=== PATIENT | male | born 1965 | race Caucasian/White ===

== ENCOUNTER 2017-04-08 12:05 | Emergency (ER) | payer BC ==
[2017-04-08] MEDS ORDERED: IBUPROFEN 400 MG TABLET (FP) PO ONE ×2 (12:11→12:25)
--- NOTE | 2017-04-08 12:11 | PDOC ---
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 The patient states that he heard 3 pops while he was lifting the patient and subsequently has pain. The pain is described as sharp, localized and is worse with deep inspiration and movement. The patient did not take any medication for the pain. He denies shortness of breath. He denies any URI symptoms, fevers or chills. Past History - Past Medical History Allergies/Adverse Reactions: Allergies Allergy/AdvReac Type Severity Reaction Status Date / Time No Known Allergies Allergy Verified 04/08/17 12:06 Home Medications: Ambulatory Orders Clonazepam [Klonopin] 2 mg PO HS 04/08/17 - Psycho/Social/Smoking Cessation Hx Anxiety: No Suicidal Ideation: No Smoking History: Current every day smoker Number of Cigarettes Smoked Daily: 10 'Breaking Loose' booklet given: 07/08/14 Hx Alcohol Use: Yes (once weekly) Review of Systems - Review of Systems Able to Perform ROS?: Yes Is the patient limited Yi proficient: No Constitutional: No: Symptoms Reported HEENTM: No: Symptoms Reported Respiratory: Yes: See HPI Cardiac (ROS): No: Symptoms Reported ABD/GI: No: Symptoms Reported : No: Symptoms Reported Musculoskeletal: Yes: See HPI Integumentary: No: Symptoms Reported *Physical Exam - Physical Exam Comments: 04/08/17 12:13 GENERAL: Well developed, well nourished. Awake and alert. No acute distress. HEENT: Normocephalic, atraumatic. PERRLA, EOMI. No conjunctival pallor. Sclera are non- icteric. Moist mucous membranes. Oropharynx is clear. NECK: Supple. Full ROM. No JVD. No lymphadenopathy. CARDIOVASCULAR: Regular rate and rhythm. No murmurs, rubs, or gallops. Distal pulses are 2+ and symmetric. PULMONARY: No evidence of respiratory distress. Lungs clear to auscultation bilaterally. No wheezing, rales or rhonchi. There is mild tenderness to palpation of the lower anterior/lateral chest wall with no crepitus appreciated. ABDOMINAL: Soft. Non-tender. Non-distended. No rebound or guarding. No organomegaly. Normoactive bowel sounds. MUSCULOSKELETAL Normal range of motion at all joints. No bony deformities or tenderness. No CVA tenderness. EXTREMITIES: No cyanosis. No clubbing. No edema. No calf tenderness. SKIN: Warm and dry. Normal capillary refill. No rashes. No jaundice. NEUROLOGICAL: Alert, awake, appropriate. Cranial nerves 2-12 intact. Grossly non-focal exam. PSYCHIATRIC: Cooperative. Good eye contact. Appropriate mood and affect. Medical Decision Making - Medical Decision Making 04/08/17 12:14 51-year-old male with complaints of right sided lateral and anterior chest wall pain after lifting a heavy patient today. Differential diagnosis includes but is not limited to: Hip fracture, strain muscle, contusion, pneumothorax. Plan: 1. Pain management 2. Chest x-ray 3. Observe and reevaluate 4. Chest x-ray is negative will discharge home, NSAIDs as needed for pain and follow-up with primary care physician. I will advise the patient to return to the emergency department if his symptoms persist, worsen, or new symptoms arise. 04/08/17 13:04 Addendum: CXR is negative for fx, PTX. Will discharge home. *DC/Admit/Observation/Transfer Diagnosis at time of Disposition: Muscle strain of chest wall - Discharge Dispostion Disposition: HOME Condition at time of disposition: Stable Admit: No - Patient Instructions Printed Discharge Instructions: DI for Muscle Strain Additional Instructions: He may take ibuprofen 600-800 mg every 6-8 hours as needed for pain. Follow-up with primary care physician within the next 1-3 days and return to the emergency department if your symptoms persist, worsen, or new symptoms arise.
[2017-04-08 12:21] VITALS: BP 145/84; PULSE 88; TEMP 98.5; BMI 27.3
== END 2017-04-08 13:16 | disposition home or self-care (01) ==
LOC: FER 12:05
DX: S29.011A Strain of muscle and tendon of front wall of thorax, initial encounter (principal); X58.XXXA Exposure to other specified factors, initial encounter; Y93.89 Activity, other specified; Y92.9 Unspecified place or not applicable; Y99.0 Civilian activity done for income or pay; Z98.84 Bariatric surgery status
CPT/HCPCS: 71020-TC; 99283-25

== ENCOUNTER 2017-06-03 15:10 | Emergency (ER) | payer BC ==
[2017-06-03 15:31] VITALS: TEMP 98.4; BMI 27.0
[2017-06-03] MEDS ORDERED: KETOROLAC TROMETHAMINE 15 MG/ML VIAL IM ONE (15:49)
[2017-06-03] MEDS ORDERED: KETOROLAC TROMETHAMINE 60 MG/2 ML VIAL ONE (15:59)
--- NOTE | 2017-06-03 16:18 | PDOC ---
History of Present Illness - General Chief Complaint: Injury Stated Complaint: LEFT RIB & HAND PAIN. S/P FALL Time Seen by Provider: 06/03/17 15:19 - History of Present Illness Initial Comments: 06/03/17 16:14 "The patient is a 51 year old male with a significant past medical history of bariatric surgery for obesity presents to the emergency Department s/p fall yesterday. Patient states he was doing some work in his back yard when he fell, landing onto his outstretched hands as well as onto his chest against a wall. He denies headstrike/LOC. He now complains of left sided rib pain and left hand pain and swelling. Pt reports that his L hand swelling is what brought him here today, as he is concerned something may be broken. Denies any redness, denies fevers/chills. Patient has been taking Aleve with some relief. Patient denies head trauma, back pain, neck pain. Patient denies leg pain, hip pain. Patient denies fever, chills, nausea, vomiting, diarrhea. Patient states he also tripped 3 weeks ago in the middle of the night, landed on his tailbone and hit his head on the floor. He states he was feeling headaches after but they have since subsided. Patient denies using any blood thinners. " Past History - Past Medical History Allergies/Adverse Reactions: Allergies Allergy/AdvReac Type Severity Reaction Status Date / Time No Known Allergies Allergy Verified 06/03/17 15:21 Home Medications: Ambulatory Orders Quetiapine Fumarate [Seroquel -] 25 mg PO HS 06/03/17 - Surgical History Gastric Stapling: Yes (GASTRIC SLEEVE) - Suicide/Smoking/Psychosocial Hx Smoking History: Current every day smoker Have you smoked in the past 12 months: Yes Number of Cigarettes Smoked Daily: 10 If you are a former smoker, when did you quit?: 10 MONTHS AGO Information on smoking cessation initiated: Yes 'Breaking Loose' booklet given: 07/08/14 Hx Alcohol Use: Yes Drug/Substance Use Hx: No Substance Use Type: None Review of Systems - Review of Systems Comments:: 06/03/17 16:16 "GENERAL/CONSTITUTIONAL: No fever or chills. No weakness. HEAD, EYES, EARS, NOSE AND THROAT: No change in vision. No ear pain or discharge. No sore throat. CARDIOVASCULAR: No chest pain or shortness of breath. RESPIRATORY: No cough, wheezing, or hemoptysis. GASTROINTESTINAL: No nausea, vomiting, diarrhea or constipation. GENITOURINARY: No dysuria, frequency, or change in urination. MUSCULOSKELETAL: + left sided rib pain + left hand pain. No neck or back pain. SKIN: No rash NEUROLOGIC: No headache, vertigo, loss of consciousness, or change in strength/ sensation. ENDOCRINE: No increased thirst. No abnormal weight change. HEMATOLOGIC/LYMPHATIC: No anemia, easy bleeding, or history of blood clots. ALLERGIC/IMMUNOLOGIC: No hives or skin allergy. " *Physical Exam - Vital Signs Last Vital Signs Temp Pulse Resp BP Pulse Ox 98.4 F 115 H 15 148/79 98 06/03/17 15:19 06/03/17 15:19 06/03/17 15:19 06/03/17 15:19 06/03/17 15:19 - Physical Exam Comments: 06/03/17 16:16 "GENERAL: Awake, alert, and fully oriented, in no acute distress HEAD: No signs of trauma EYES: PERRLA, EOMI, sclera anicteric, conjunctiva clear ENT: Auricles normal inspection, hearing grossly normal, nares patent, oropharynx clear without exudates. Moist mucosa NECK: Nontender, no stepoffs, Normal ROM, supple, no lymphadenopathy, JVD, or masses LUNGS: Breath sounds equal, clear to auscultation bilaterally. No wheezes, and no crackles HEART: Regular rate and rhythm, normal S1 and S2, no murmurs, rubs or gallops ABDOMEN: Soft, nontender, normoactive bowel sounds. No guarding, no rebound. No masses MUSCULOSKELETAL: Left chest wall tenderness with no crepitus. EXTREMITIES: Left hand has swelling and tenderness to the proximal third and fourth digit. Full ROM. No snuffbox tenderness. No wrist or arm deformity.Rest of extremities: Normal range of motion, no edema. No clubbing or cyanosis. No cords, erythema, or tenderness NEUROLOGICAL: Cranial nerves II through XII intact. 5/5 strength and sensation in all extremities, Normal speech, normal gait SKIN: Warm, Dry, normal turgor, no rashes or lesions noted. " ED Treatment Course - RADIOLOGY Radiology Studies Ordered: Category Date Time Status HEAD CT WITHOUT CONTRAST [CT] Stat CT Scan 06/03/17 15:35 Ordered HAND- LEFT [RAD] Stat Radiology 06/03/17 15:35 Taken RIBS-LEFT SIDE [RAD] Stat Radiology 06/03/17 15:36 Taken - Medications Given in the ED: ED Medications Discontinued Medications Generic Name Dose Route Start Last Admin Trade Name Jordan PRN Reason Stop Dose Admin Ketorolac Tromethamine 15 mg 06/03/17 15:49 06/03/17 16:03 Toradol Injection - IM 06/03/17 15:50 15 mg ONCE ONE Administration Medical Decision Making - Medical Decision Making 06/03/17 16:17 51 M with L hand swelling and pain and L chest wall pain after falling yesterday. - XR L hand - XR chest/ribs - CT head given h/o fall with headaches 3 weeks ago 06/03/17 16:29 CTH negative. XRs negative for acute fx. Will begin keflex empirically for possible early cellulitis of L hand, likely 2/ 2 abrasions suffered while falling. No evidence of flexor or extensor tendon infection. No evidence of septic arthritis. *DC/Admit/Observation/Transfer Diagnosis at time of Disposition: Cellulitis - Discharge Dispostion Disposition: HOME Condition at time of disposition: Good - Referrals Referrals: Ramy Tijerina MD [Primary Care Provider] - Ramy Smith MD [Staff Physician] - - Patient Instructions Printed Discharge Instructions: DI for Cellulitis -- Adult Additional Instructions: Take the keflex as prescribed to prevent infection. If you experience worsening pain, redness, swelling, fevers, or any other concerning symptoms, return to the ER immediately. Follow up with a hand surgeon within 1 week, as infections involving the hand can have severe complications and be potentially debilitating. - Attestations Physician Attestion: 06/03/17 17:56 I, Dr. Ruben Sawant MD, attest that this document has been prepared under my direction and personally reviewed by me in its entirety. I further attest, that it accurately reflects all work, treatment, procedures and medical decision -making performed by me.
[2017-06-03] MEDS ORDERED: CEPHALEXIN MONOHYDRATE 500 MG CAPSULE (UD) PO ONE (16:26)
[2017-06-03] MEDS ORDERED: CEPHALEXIN MONOHYDRATE 500 MG CAPSULE (UD) ONE (16:31)
[2017-06-03 18:21] VITALS: BP 227/65; PULSE 76
== END 2017-06-03 18:21 | disposition home or self-care (01) ==
LOC: FER 15:10
PROC: 3E0233Z Introduction of Anti-inflammatory into Muscle, Percutaneous Approach (ICD-10-PCS; principal; 2017-06-03)
DX: Z98.84 Bariatric surgery status (principal); M79.89 Other specified soft tissue disorders; L03.90 Cellulitis, unspecified; Z87.891 Personal history of nicotine dependence; W18.39XA Other fall on same level, initial encounter; Y93.89 Activity, other specified; Y92.007 Garden or yard of unspecified non-institutional (private) residence as the place of occurrence of the external cause
CPT/HCPCS: 70450-TC; 71101-TC; 73130-TC-LT; 99282-25

== ENCOUNTER 2020-03-02 10:13 | Inpatient (IN) | payer BC ==
--- NOTE | 2020-03-02 10:23 | PDOC ---
Rapid Medical Evaluation Time Seen by Provider: 03/02/20 10:18 Medical Evaluation: Allergies Allergy/AdvReac Type Severity Reaction Status Date / Time No Known Allergies Allergy Verified 06/03/17 15:21 03/02/20 10:19 CC: stepped on FB in the water on sunday, went to urgent care yesterday, given abx, u/s and referral to podiatry who saw him this am and referred to ED lois possible deep tissue infection, Exam: edema and erythema to sole between 2 3rd digit of left foot. area warm to touch, no drainage Plan: cbc, comp, ct soft tissue Discharge Disposition - Diagnosis Left foot infection - Referrals - Patient Instructions - Post Discharge Activity
--- NOTE | 2020-03-02 10:28 | PDOC ---
History of Present Illness - General Chief Complaint: Wound Stated Complaint: LT FOOT PAIN Time Seen by Provider: 03/02/20 10:18 History Source: Patient Exam Limitations: No Limitations - History of Present Illness Initial Comments: 03/02/20 10:28 54yM w PMHx multiple ruptured/herniated discs, anxiety, gastric bypass presenting w 3d progressive worsening warmth/tenderness/erythema to distal plantar surface of L foot after [place]. Yesterday was evaluated at [facility], foot US showed thickening of skin/subq tissue and multiple tiny echogenic foci d/t air vs FB, given bactrim, tdap and DC w podiatry Dr Gordon f/u this morning, who promptly referred to ED for concern for deep infection. Didn't take any meds for pain this morning. Denies fever, foot numbness/paresthesias, still able to ambulate. Past History - Medical History Allergies/Adverse Reactions: Allergies Allergy/AdvReac Type Severity Reaction Status Date / Time No Known Allergies Allergy Verified 06/03/17 15:21 Home Medications: Ambulatory Orders Alprazolam [Xanax] 1 mg PO DAILY 03/02/20 Sildenafil Citrate [Viagra] 0 mg PO ASDIR 03/02/20 Sulfamethoxazole/Trimethoprim [Bactrim Ds -] 1 tab PO DAILY 03/02/20 Trazodone HCl 300 mg PO HS 03/02/20 COPD: No - Surgical History Gastric Stapling: Yes (GASTRIC SLEEVE) - Immunization History Immunization Up to Date: No - Psycho-Social/Smoking History Smoking History: Never smoked Have you smoked in the past 12 months: No Number of Cigarettes Smoked Daily: 10 If you are a former smoker, when did you quit?: 10 MONTHS AGO Information on smoking cessation initiated: No 'Breaking Loose' booklet given: 07/08/14 - Substance Abuse Hx (Audit-C & DAST Scrn) How often the patient has a drink containing alcohol: 2-3 times / week Number of drinks the patient has on a typical day: 1 or 2 How often the patient has six or more drinks on one occasion: Weekly Score: In Men: 4 or > Positive; In Women: 3 or > Positive: 6 Screen Result (Pos requires Nsg. Audit-10AR): Positive In the last yr the pt used illegal drug/Rx for NonMed reason: No Score: Yes response is considered Positive: 0 Screen Result (Positive result requires Nsg. DAST-10): Negative Review of Systems - Review of Systems Constitutional: No: Chills, Fever HEENTM: No: Eye Pain, Nose Congestion Respiratory: No: Cough, Shortness of Breath Cardiac (ROS): No: Chest Pain, Lightheadedness ABD/GI: No: Abdominal Distended, Nausea, Vomiting : No: Burning, Dysuria Musculoskeletal: Yes: Joint Pain. No: Back Pain Integumentary: No: Bruising, Dryness Neurological: No: Headache, Seizure Psychiatric: No: Anxiety, Depression Endocrine: No: Intolerance to Cold, Intolerance to Heat Hematologic/Lymphatic: No: Anemia, Easy Bleeding *Physical Exam - Vital Signs Last Vital Signs Temp Pulse Resp BP Pulse Ox 97.9 F 78 16 119/77 98 03/02/20 10:20 03/02/20 10:20 03/02/20 10:20 03/02/20 10:20 03/02/20 10:20 - Physical Exam General Appearance: Yes: Nourished, Appropriately Dressed, Mild Distress HEENT: positive: EOMI, TRINA, Normal Voice, Hearing Grossly Normal Respiratory/Chest: positive: Lungs Clear, Normal Breath Sounds. negative: Chest Tender, Respiratory Distress Cardiovascular: positive: Regular Rhythm, Regular Rate, S1, S2. negative: Edema, Murmur Vascular Pulses: Dorsalis-Pedis (R): 2+, Doralis-Pedis (L): 2+ Gastrointestinal/Abdominal: positive: Normal Bowel Sounds, Flat, Soft. negative: Tender, Organomegaly Extremity: positive: Other (L foot 1cm open shallow wound over distal plantar foot 2-3rd MTP, no discharge/bleeding. Red/tender/warm/mildly swollen. Able to wiggle toes, ) Integumentary: positive: Warm Neurologic: positive: Fully Oriented, Alert, Normal Mood/Affect, Normal Response, Motor Strength 5/5, Responsive ED Treatment Course - LABORATORY CBC & Chemistry Diagram: 03/02/20 11:00 03/02/20 11:00 Medical Decision Making - Medical Decision Making 03/02/20 10:52 CT foot - mild soft tissue swelling along dorsal/ventral distal 1st MT bone. No evidence of abscess or foreign body. Radiologist recommended XR and MRI L foot XR - no foreign body EKG - NSR, HR 64, QTc 439, no ST changes --- 54yM w PMHx multiple ruptured/herniated discs, anxiety, gastric bypass presenting w 3d progressive worsening warmth/tenderness/erythema to distal plantar surface of L foot after he stepped on an unknown [place] d/t cellulitis. Low concern for foreign body vs osteomyelitis vs abscess based on CT and XR. Foot neurovascular intact Given tylenol, vanc, zosyn, morphine, oxycodone Admitted m/s for L foot cellulitis Discharge - Discharge Information Problems reviewed: Yes Clinical Impression/Diagnosis: Cellulitis and abscess of foot Condition: Improved - Follow up/Referral - Patient Discharge Instructions - Post Discharge Activity
[2020-03-02] MEDS ORDERED: ACETAMINOPHEN 500 MG TABLET (FP) PO ONE (10:54)
[2020-03-02] MEDS ORDERED: VANCOMYCIN 1 GM in D5W (PRE-DOCKED) 1,000 MG/250 ML IVPB ONE (11:01)
[2020-03-02] MEDS ORDERED: PIPERACILLIN/TAZOB 4.5 GM 4.5 GM in DEXTROSE 5%-WATER 100 ML IVPB ONE (11:01)
[2020-03-02] MEDS ORDERED: ACETAMINOPHEN 325 MG TABLET (FP) ONE (11:13)
--- NOTE | 2020-03-02 11:13 | PDOC ---
Documentation entered by Sharita Warren SCRIBE, acting as scribe for Servando Dolan MD. Servando Dolan MD: This documentation has been prepared by the Kelvin vinson Nirvannie, SCRIBE, under my direction and personally reviewed by me in its entirety. I confirm that the documentation accurately reflects all work, treatment, procedures, and medical decision making performed by me. Attending Attestation - Resident Resident Name: BrittneyNavarro - ED Attending Attestation I have performed the following: I have examined & evaluated the patient, The case was reviewed & discussed with the resident, I agree w/resident's findings & plan, Exceptions are as noted - HPI HPI: 03/02/20 11:10 54-year-old gentleman status post gastric sleeve presenting with left foot pain status [place]. Patient know to severe pain in the evening after the injury, he lanced the area and noted Clear discharge that looks likeAnd removed a particle of sand. He notes that the pain has been worsening and he is unable to ambulate he went to urgent care yesterday was started on Bactrim had an ultrasound that showed some foci and was referred to podiatry who sent the patient to the ER. He denies any fevers, chills, nausea, vomiting no pain proximal to the left forefoot. PMD: Ramy St No allergies Denies recreational drug use famoily hx non contributory - Physicial Exam PE: 03/02/20 11:08 GENERAL: The patient is awake, alert, and fully oriented, Nontoxic - in no acute distress. EXTREMITIES: Mild edema of the distal/medial aspect of L foot, Puncture wound in the plantar aspect of the forefoot with diffuse severe tenderness To the medial aspect of the distal forefoot. No significant erythema, no discharge expressible. No streaking noted - Medical Decision Making 03/02/20 11:12 foot infection - abscess, ?fb will need broad coverage for saltwater darline CT to eval for abscess vs fb anticipate admission 03/02/20 18:[address] and xray reviewed - no collections or fbt noted will admit for further management Heart Score/ECG Review - ECG Impressions Comment:: 03/02/20 12:35 Twelve-lead EKG was performed and reviewed by me. There is normal sinus rhythm with a normal rate. Rate of 64 The axis is normal. The intervals are normal. There is normal R wave progression There are no ST or T wave abnormalities. Impression: Normal twelve-lead EKG Discharge - Discharge Information Problems reviewed: Yes Clinical Impression/Diagnosis: Cellulitis and abscess of foot Condition: Improved Disposition: HOME - Follow up/Referral - Patient Discharge Instructions - Post Discharge Activity
[2020-03-02] MEDS ORDERED: PIPERACILLIN/TAZOB 4.5 GM 4.5 GM/100 ML BAG IVPB ONE ×2 (11:14→22:08)
[2020-03-02] MEDS ORDERED: VANCOMYCIN 1 GRAM (PRE-DOCKED) 1,000 MG/250 ML BAG IVPB ONE (11:14)
[2020-03-02] MEDS ORDERED: morphine CARPU-JECT 4 MG/1 ML DISP.SYRIN IVPUSH ONE ×2 (12:42→16:34)
[2020-03-02 12:58] LABS: BASO % 0.2 % (0-2.0); EOS % 1.1 % (0-4.5); HEMATOCRIT 42.7 % (35.4-49); HEMOGLOBIN 14.2 GM/dL (11.7-16.9); LYMPH % 17.4 % (8-40); MCHC 33.2 g/dl (32.0-35.9); MEAN CELL VOLUME 87.1 fl (80-96); MEAN PLT VOLUME 9.4 fl (7.5-11.1); MONO % 8.1 % (3.8-10.2); NEUT % 73.2 % (42.8-82.8); PLATELET COUNT 200 K/MM3 (134-434); RDW 13.8 % (11.9-15.9); WHITE BLOOD COUNT 6.1 K/mm3 (4.0-10.0)
[2020-03-02] MEDS ORDERED: morphine SULFATE 4 MG/ML VIAL ONE ×2 (13:15→13:58)
[2020-03-02 13:33] LABS: ALBUMIN 3.9 g/dl (3.4-5.0); BILIRUBIN,TOTAL 0.7 mg/dL (0.2-1); BLOOD UREA NITROGEN 13.1 mg/dL (7-18); CALCIUM 9.5 mg/dL (8.5-10.1); POTASSIUM 4.5 mmol/L (3.5-5.1); TOT PROT 8.1 g/dl (6.4-8.2)
[2020-03-02] MEDS ORDERED: oxyCODONE HCL 5 MG TABLET PO ONE (18:01)
--- NOTE | 2020-03-02 19:34 | PN ---
Teaching Attending Note Name of Resident: Ayde Robbins ATTENDING PHYSICIAN STATEMENT I saw and evaluated the patient. I reviewed the resident's note and discussed the case with the resident. I agree with the resident's findings and plan as documented. SUBJECTIVE: Patient is a 54 year old man with a PMH of Multiple ruptured/herniated discs, Prediabetes, Bilateral knee replacement, Osteoarthritis, Anxiety and Gastric bypass surgery for obesity presenting with three days of worsening warmth/tenderness/erythema to distal plantar surface of left foot after he stepped on an unknown [place]. Yesterday was evaluated at [facility], foot US showed thickening of skin/subcutaneous tissue and multiple tiny echogenic foci due to ?air vs foreign body. He was given Bactrim, TDap vaccine and referred to Podiatry. The [facility] saw him this morning and referred him to the ER out of concern for deep infection. Didn't take any medications for pain this morning and still able to ambulate. Denies fever, foot numbness/paresthesias, chills, nausea, vomiting, abdominal pain, chest pain, SOB, dysuria or diarrhea. Former smoker. 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 Denies alcohol, tobacco or illicit drug use. No sick contacts or recent travels. Family history is unremarkable. OBJECTIVE: Alert Vital Signs Period Temp Pulse Resp BP Sys/Carlson Pulse Ox Last 24 Hr 97.9 F 61-78 16-18 101-119/64-77 98-98 HEENT: No Jaundice, eye redness or discharge, PERRLA, EOMI. Normocephalic, atraumatic. External ears are normal and hearing is grossly intact. No nasal discharge. Neck: Supple, nontender. No palpable adenopathy or thyromegaly. No JVD Chest: Good effort. Clear to auscultation and percussion. Heart: Regular. No S3, rub or murmur Abdomen: Not distended, soft, nontender and no HSM. No rebound or guarding. Normal bowel sounds. Ext: Peripheral pulses intact. Wound in the plantar aspect of the fore left foot with surrounding tenderness, erythema and edema; no purulent discharge or crepitus. Skin: Warm and dry. No petechiae, rash or ecchymosis. Neuro: Alert. Oriented x3. CN 2-12 grossly intact. Sensation grossly intact in all four extremities and DTR are symmetric. Psych: Appropriate mood and affect. Good insight. Home Medications Medication Instructions Recorded Alprazolam [Xanax] 1 mg PO DAILY 03/02/20 Sildenafil Citrate [Viagra] 0 mg PO ASDIR 03/02/20 Sulfamethoxazole/Trimethoprim 1 tab PO DAILY 03/02/20 [Bactrim Ds -] Trazodone HCl 300 mg PO HS 03/02/20 Abnormal Lab Results 03/02/20 11:00 Anion Gap 5 L Random Glucose 68 L Current Medications Generic Name Dose Route Start Last Admin Trade Name Freq PRN Reason Stop Dose Admin Acetaminophen 650 mg 03/02/20 21:22 Tylenol - PO Q4H PRN PAIN LEVEL 6-10 Enoxaparin Sodium 40 mg 03/03/20 10:00 Lovenox - SQ DAILY [facility] Piperacillin Sod/Tazobactam 100 mls @ 200 mls/hr 03/02/20 21:45 Sod 4.5 gm/ Dextrose IVPB Q8H-IV ROSHAN Protocol Piperacillin Sod/Tazobactam 100 mls @ 200 mls/hr 03/02/20 22:00 03/02/20 22:11 Sod 4.5 gm/ Dextrose IVPB 03/03/20 10:29 200 mls/hr Q8H-IV ROSHAN Administration Protocol Oxycodone HCl 5 mg 03/02/20 21:22 Roxicodone - PO Q6H PRN PAIN LEVEL 6-10 Vancomycin HCl 1,000 mg 03/03/20 01:00 Vancomycin (Pre-Docked) IVPB BID ROSHAN Protocol Vancomycin HCl 1,000 mg 03/03/20 01:00 Vancomycin (Pre-Docked) IVPB 03/03/20 13:01 Q12H ROSHAN Protocol ASSESSMENT AND PLAN: 1. Left foot posttraumatic wound infection and cellulitis -Left foot xray shows hammertoes, no fracture, foreign body or air collection. Left foot CT scan shows soft tissue swelling, no abscess or foreign body. Blood culture ordered. Will send wound culture, provide daily wound care, get urinalysis, CRP, ESR, HbA1c, implement insulin sliding scale, provide diabetes education, consult Podiatry, ID and Wound care service. Patient started on IV Vancomycin and Zosyn. CRP/ESR and initial response to antibiotics will determine whether an MRI is warranted. Viral testing for COVID-19 ordered and patient placed on airborne, droplet and contact isolation. EKG shows NSR at 64/minute and QTc [address]-T wave changes. Initial troponin is negative. 2. DVT prophylaxis - Lovenox 40 mg SQ q 24 hours. 3. Advance directives - Full code
[2020-03-02] MEDS ORDERED: oxyCODONE HCL 5 MG TABLET ONE (21:30)
[2020-03-02] MEDS: PIPERACILLIN/TAZOB 4.5 GM 4.5 GM in DEXTROSE 5%-WATER 100 ML IVPB SCH (22:11)
[2020-03-03 00:12] LABS: PH,URINE 6.5 (5.0-8.0); URINE APPEARANCE CLEAR; URINE BILIRUBIN NEGATIVE (NEGATIVE); URINE COLOR YELLOW; URINE GLUCOSE (UA) NEGATIVE (NEGATIVE); URINE KETONE NEGATIVE (NEGATIVE); URINE LEUK ESTERASE NEGATIVE (NEGATIVE); URINE NITRITE NEGATIVE (NEGATIVE); URINE PROTEIN NEGATIVE (NEGATIVE)
--- NOTE | 2020-03-03 00:44 | HP ---
CHIEF COMPLAINT: I stepped on something sharp PCP: Dr. Tijerina HISTORY OF PRESENT ILLNESS: Mr. Alex Gomez is a 54 Y M with a PMH of Multiple ruptures/herniated disks, anxiety, s/p gastric bypass, and prediabetes, s/p bilateral knee replacements, and s/p C5,C6,C7 cervical fusion, presents with worsening pain and swelling of his left foot plantar surface for 3 days. Patient reports that Sunday, he was walking along the beach and stepped on a sharp unknown object. Overnight, there was swelling and increased pain in the plantar surface of his L.foot. Sunday he went to [facility] for increased pain, U/S revealed evidence of deep tissue infection. He was given bactrim and TDAP vaccine and was referred to podiatry. Podiatry evaluated him Sunday and referred him to the ER out of concerns for deep tissue infection and possible osteomyelitis. Patient reports that before his Gastric sleeve, the patient weighted about 300lbs and was receiving treatments for pre-diabetes, he does not remember the name of the medication, but most likely metformin. He reports in 2008, he had an intra-abdominal procedure complicated by esophageal perforation. After his Gastric bypass his blood glucose improved and his PCP discontinued his medication. ER course was notable for: (1)Left foot XR revealed no foreign bodies or air collection (2)LE CT revealed soft tissue swelling without abscess or FB (3) Recent Travel: Denies PAST MEDICAL HISTORY: As above in HPI PAST SURGICAL HISTORY: As above in HPI Social History: Smokin pack years on and off, quit 3 years ago Alcohol: 3-4x per week, wine Drugs: denies Allergies No Known Allergies Allergy (Verified 06/03/17 15:21) HOME MEDICATIONS: Home Medications Medication Instructions Recorded Alprazolam [Xanax] 1 mg PO DAILY 03/02/20 Sildenafil Citrate [Viagra] 0 mg PO ASDIR 03/02/20 Sulfamethoxazole/Trimethoprim 1 tab PO DAILY 03/02/20 [Bactrim Ds -] Trazodone HCl 300 mg PO HS 03/02/20 REVIEW OF SYSTEMS CONSTITUTIONAL: Absent: fever, chills, diaphoresis, generalized weakness, malaise HEENT: Absent: rhinorrhea, nasal congestion, throat pain, throat swelling, difficulty swallowing CARDIOVASCULAR: Absent: chest pain, syncope, palpitations, irregular heart rate, lightheadedness, peripheral edema RESPIRATORY: Absent: cough, shortness of breath, dyspnea with exertion, orthopnea, wheezing GASTROINTESTINAL: Absent: abdominal pain, abdominal distension, nausea, vomiting, diarrhea, constipation GENITOURINARY: Absent: dysuria, frequency, urgency, hesitancy, hematuria, flank pain, genital pain MUSCULOSKELETAL: Absent: myalgia, arthralgia, joint swelling SKIN: Absent: rash, itching, pallor NEUROLOGIC: Absent: headache, dizziness, bladder or bowel incontinence PHYSICAL EXAMINATION Vital Signs - 24 hr 03/02/20 03/02/20 10:20 15:30 Temperature 97.9 F Pulse Rate 78 Pulse Rate [ 61 Radial] Respiratory 16 18 Rate Blood Pressure 119/77 Blood Pressure 101/64 [Right Arm] O2 Sat by Pulse 98 98 Oximetry (%) GENERAL: Awake, alert, and fully oriented, in no acute distress. HEAD: Normal with no signs of trauma. EYES: Pupils equal, round and reactive to light, extraocular movements intact, sclera anicteric, conjunctiva clear. EARS, NOSE, THROAT: Ears normal, nares patent, oropharynx clear without exudates. Moist mucous membranes. NECK: supple without lymphadenopathy, JVD, or masses. LUNGS: Breath sounds equal, clear to auscultation bilaterally. No wheezes, and no crackles. HEART: Regular rate and rhythm, normal S1 and S2 without murmur, rub or gallop. ABDOMEN: Soft, nontender, not distended, normoactive bowel sounds, no guarding, no rebound, no masses. UPPER EXTREMITIES: 2+ pulses, warm, well-perfused. No cyanosis. No clubbing. No peripheral edema. LOWER EXTREMITIES: Open 1cm shallow wound with Mild edema, erythema between 2nd and 3rd digit of left foot, motor function intact. 2+ pulses, warm, well- perfused. No calf tenderness. No peripheral edema. PSYCHIATRIC: Cooperative. Good eye contact. Appropriate mood and affect. SKIN: Warm, dry, normal turgor, normal capillary refill. Laboratory Results - last 24 hr 03/02/20 03/02/20 03/03/20 11:00 11:00 00:01 WBC 6.1 RBC 4.90 Hgb 14.2 Hct 42.7 MCV 87.1 MCH 29.0 MCHC 33.2 RDW 13.8 Plt Count 200 MPV 9.4 Absolute Neuts (auto) 4.5 Neutrophils % 73.2 Lymphocytes % 17.4 Monocytes % 8.1 Eosinophils % 1.1 Basophils % 0.2 Nucleated RBC % 0 Sodium 138 Potassium 4.5 Chloride 103 Carbon Dioxide 30 Anion Gap 5 L BUN 13.1 Creatinine 1.0 Est GFR (CKD-EPI)AfAm 99.85 Est GFR (CKD-EPI)NonAf 86.15 Random Glucose 68 L Calcium 9.5 Total Bilirubin 0.7 AST 28 ALT 23 Alkaline Phosphatase 90 Total Protein 8.1 Albumin 3.9 Urine Color Yellow Urine Appearance Clear Urine pH 6.5 Ur Specific [place] 1.036 H Urine Protein Negative Urine Glucose (UA) Negative Urine Ketones Negative Urine Blood Negative Urine Nitrite Negative Urine Bilirubin Negative Urine Urobilinogen 1.0 Ur Leukocyte Esterase Negative Ur Random Creatinine U Random Total Protein Protein/Creatinin Ratio 03/03/20 00:01 WBC RBC Hgb Hct MCV MCH MCHC RDW Plt Count MPV Absolute Neuts (auto) Neutrophils % Lymphocytes % Monocytes % Eosinophils % Basophils % Nucleated RBC % Sodium Potassium Chloride Carbon Dioxide Anion Gap BUN Creatinine Est GFR (CKD-EPI)AfAm Est GFR (CKD-EPI)NonAf Random Glucose Calcium Total Bilirubin AST ALT Alkaline Phosphatase Total Protein Albumin Urine Color Urine Appearance Urine pH Ur Specific [place] Urine Protein Urine Glucose (UA) Urine Ketones Urine Blood Urine Nitrite Urine Bilirubin Urine Urobilinogen Ur Leukocyte Esterase Ur Random Creatinine 98.0 U Random Total Protein 11.3 Protein/Creatinin Ratio 0.1 ASSESSMENT/PLAN: 54 Y M with a PMH of Multiple ruptured/herniated disks, anxiety and s/p gastric bypass, presents with 3 days of worsening plantar pain, associated with edema and erythema. LE CT revealed mild soft tissue swelling and no evidence of abscess. Patient is admitted for management of cellulitis of L. foot # L. Foot Cellulitis 2/2 to a penetrating wound - Open 1cm shallow wound with Mild edema, erythema between 2nd and 3rd digit of left foot - Left foot XR revealed no foreign bodies or air collection - LE CT revealed soft tissue swelling without abscess or FB - Blood cultures are pending - Consulted wound care Yuan Peterson - Consulted podiatry mounika Watts ( If Dr. Gordon does not visit this hospital, will need another consult) - Continue Vanc + Zosyn - F/U ESR and CRP, - F/U with MRI results #DVT PPX: Levenox 40mg #FEN: - Not on any standing fluids - Monitor electrolytes - Regular Diet # Dispo: Admit to Med-Surg, pending Wound care, Pending Podiatry recs. Visit type - Emergency Visit Emergency Visit: Yes ED Registration Date: 03/02/20 Care time: The patient presented to the Emergency Department on the above date and was hospitalized for further evaluation of their emergent condition. - New Patient This patient is new to me today: Yes Date on this admission: 03/03/20 - Critical Care Critical Care patient: No ATTENDING PHYSICIAN STATEMENT I saw and evaluated the patient. I reviewed the resident's note and discussed the case with the resident. I agree with the resident's findings and plan as documented. SUBJECTIVE: OBJECTIVE: ASSESSMENT AND PLAN:
[2020-03-03] MEDS ORDERED: VANCOMYCIN 1 GM in D5W (PRE-DOCKED) 1,000 MG/250 ML IVPB SCH (01:00)
[2020-03-03] MEDS ORDERED: VANCOMYCIN 1 GRAM (PRE-DOCKED) 1,000 MG/250 ML BAG IVPB ONE (01:08)
[2020-03-03] MEDS: VANCOMYCIN 1 GM in D5W (PRE-DOCKED) 1,000 MG/250 ML IVPB SCH ×2 (01:09→13:07)
[2020-03-03] MEDS ORDERED: PIPERACILLIN/TAZOB 4.5 GM 4.5 GM/100 ML BAG IVPB ONE ×2 (02:40→10:13)
[2020-03-03] MEDS: PIPERACILLIN/TAZOB 4.5 GM 4.5 GM in DEXTROSE 5%-WATER 100 ML IVPB SCH ×4 (02:41→17:35)
[2020-03-03] MEDS ORDERED: morphine SULFATE 4 MG/ML VIAL ONE (02:49)
[2020-03-03] MEDS ORDERED: MORPHINE SULFATE 2 MG/ML VIAL ONE (02:50)
[2020-03-03 08:05] LABS: BASO % 0.1 % (0-2.0); EOS % 1.4 % (0-4.5); HEMATOCRIT 39.3 % (35.4-49); HEMOGLOBIN 12.7 GM/dL (11.7-16.9); LYMPH % 18.5 % (8-40); MCHC 32.2 g/dl (32.0-35.9); MEAN CELL VOLUME 86.8 fl (80-96); MEAN PLT VOLUME 8.1 fl (7.5-11.1); PLATELET COUNT 157 K/MM3 (134-434); RBC 4.52 M/mm3 (4.00-5.60); RDW 13.5 % (11.9-15.9); WHITE BLOOD COUNT 5.8 K/mm3 (4.0-10.0)
[2020-03-03] MEDS ORDERED: oxyCODONE HCL 5 MG TABLET ONE (08:07)
[2020-03-03] MEDS: oxyCODONE HCL 5 MG TABLET PO PRN (08:18)
[2020-03-03 08:28] LABS: MAGNESIUM 2.2 mg/dL (1.8-2.4); PHOSPHOROUS 3.8 mg/dL (2.5-4.9)
--- NOTE | 2020-03-03 08:38 | CONSULT ---
- Consultation REQUESTING PROVIDER: Yuan Pressley - Wound Care/Surgery CONSULT REQUEST: We have been asked to surgically evaluate this patient for Left foot wound PCP: Gemma Kim HPI: Called to nils 54 yo male w/ PMHx as noted below. States he was walking along the beach this past Sunday and believes he stepped on a sharp object and thinks it's embedded in his foot. Went to [facility] this past Sunday for eval. Said they performed foot U/S which identified a deep tissue infection and was sent home on Bactrim and administered a TDAP vaccine. Patient admits to at [facility] to remove what he believed to be the retained foreign body (thinks it was sand). Next morning awoke to extreme left foot swelling and pain. Podiatry evaluated him Sunday and referred him to the ER for further evaluation. Started on Vanco & Tazobactam. While in the ED he had the following studies: 1. Left foot XR: no foreign bodies or gas in soft tissue 2. LLE CT: soft tissue swelling without abscess or retained FB Denies n/v/f/c, CP, palpitations, SOB or OHARA. Denies numbness/tingling to affected foot. Denies purulent drainage. PMHx: Multiple ruptures/herniated disks, anxiety, , and prediabetes, PSHx: Gastric bypass, Bilateral knee replacements, Cervical fusion C5-C7 Home Medications Medication Instructions Recorded Alprazolam [Xanax] 1 mg PO DAILY 03/02/20 Sildenafil Citrate [Viagra] 0 mg PO ASDIR 03/02/20 Sulfamethoxazole/Trimethoprim 1 tab PO DAILY 03/02/20 [Bactrim Ds -] Trazodone HCl 300 mg PO HS 03/02/20 Allergies Allergy/AdvReac Type Severity Reaction Status Date / Time No Known Allergies Allergy Verified 06/03/17 15:21 ROS: 12 system review conducted and considered negative except for what's contained in the hpi. PE: GENERAL: Awake, alert, and fully oriented, in no acute distress. LUNGS: unlabored respirations on room air HEART: rrr MUSCULOSKELETAL: Normal ROM at all joints. No bony deformities LE: RLE unremarkable. LLE Palpable DP & PT. Warm, well-perfused. No calf tenderness. No peripheral edema. Plantar aspect with swelling. vertical wound. no purulent draineage. ttp. no induration or bogginess. not malodorous. PSYCH: Cooperative. Good eye contact. Appropriate mood and affect. Last Vital Signs Temp Pulse Resp BP Pulse Ox 97.1 F L 69 20 110/66 100 03/03/20 07:10 03/03/20 07:10 03/03/20 07:10 03/03/20 07:10 03/03/20 02:59 CBC 03/02/20 11:00 Serology Test 03/02/20 11:50 COVID-19 ([facility]) Pending Problem List - Problems (1) Cellulitis of foot, left Assessment/Plan: No abscess identified on U/S and CT scan. - Cont IV ABX - Warm soaks prn - Tylenol for pain and or fever > 100.4F - Consult placed to Fabien Gordon DPM and will defer remainder of care to said Pottery Machine Operator. - No further Vascular input. Reconsult prn Above plan discussed with Dr. Pressley and agrees. Code(s): L03.116 - CELLULITIS OF LEFT LOWER LIMB Visit type - Case Type Case Type: ED Admission - Emergency Emergency Visit: Yes ED Registration Date: 03/02/20 Care time: The patient presented to the Emergency Department on the above date and was hospitalized for further evaluation of their emergent condition. - New patient This patient is new to me today: Yes Date on this admission: 03/03/20
[2020-03-03 09:22] LABS: ERYTHROCYTE SEDIMENTATION RATE 18 mm/hr (0-20)
[2020-03-03] MEDS ORDERED: ENOXAPARIN NA (PORCINE) 40 MG/0.4 ML DISP.SYRIN SQ ONE (09:41)
[2020-03-03] MEDS: ENOXAPARIN NA (PORCINE) 40 MG/0.4 ML DISP.SYRIN SQ SCH (09:48)
--- NOTE | 2020-03-03 10:43 | EKG ---
Test Reason : Blood Pressure : / mmHG Vent. Rate : 064 BPM Atrial Rate : 064 BPM P-R Int : 116 ms QRS Dur : 096 ms QT Int : 426 ms P-R-T Axes : 011 006 034 degrees QTc Int : 439 ms NORMAL SINUS RHYTHM NORMAL ECG WHEN COMPARED WITH ECG OF 23-MAR-2010 17:35, VENT. RATE HAS DECREASED BY [address] ELEVATION NOW PRESENT IN LATERAL LEADS Confirmed by MD Chinedu, Brock ([id number]) on 03/03/2020 10:42:55 AM Referred By: Confirmed By:Brock Che MD
[2020-03-03] MEDS ORDERED: clonazePAM 0.5 MG TABLET PO ONE (14:00)
--- NOTE | 2020-03-03 14:02 | PN ---
Teaching Attending Note Name of Resident: Stone Salinas ATTENDING PHYSICIAN STATEMENT I saw and evaluated the patient. I reviewed the resident's note and discussed the case with the resident. I agree with the resident's findings and plan as documented. SUBJECTIVE: reports no fever or chills at home. stepped on something sharp on beath , but could not find anything but sand when he tried to find it with a blade next day. pain in foot especially in big toe with movement. no previous skin infection reports neuropathy in L foot from his herniated disc, and he still has decreased sensation in L foot. OBJECTIVE: NAD, awake, alert, cooperative MMM, CV: RRR, no MRG Lungs: CTAB abd: soft, NT, Nd , NL BS ext : No edema or erythema on RLE. LLE with no erythema or edema over the thigh or the leg. dosral foot with erythema streaking up to ankle. plantar aspect of the foot with a small wound probably 1 x 0.5 cm in front of foot at level of 2nd metatarsal head. no discharge, some discoloration around the wound. scan over the wound. tenderness to palpation. no crepitus is felt under the skin dorsally and on plantar aspect. warm skin dorsal foot . DP 2+ . decreased sensation to light touch over L foot compared to R foot ASSESSMENT AND PLAN: 54 y/o man with h/o Prediabetes, herniated discs ,Bilateral knee replacement, Osteoarthritis, Anxiety and Gastric bypass surgery 1- L foot cellulitis: due to foreign body injury. CT scan reviewed, no foreign bodies or abscess. ESR, CRP noted. on exam he has severe pain with flexion and extension of the big toe. concern fro tendonitis. - will get the MRI of the foot to evaluate tendons. - vanco and zosyn given, appropriate given his infection and streaking to the dorsal foot. ID consult for Abx management - No systemic signs of infection. follow blood cx though - No suspicion for Osteomyelitis. - cont oxy for pain - seen by surgery . case was d/w Artemio, who deferred to podiatry regarding tendon involvement. 2- H/o Anxiety, resume his xanax daily 3- Insomnia: resume trazodone.
--- NOTE | 2020-03-03 17:01 | PN ---
Progress Note (short form) - Note Progress Note: ID consult dictated imp/reccd cellulitis of the left foot-r/o abscess no fevers was at the beach thought he got a foreign bogy in his foot and used a new knife to incise the area- foot became red and swolen seen [facility] - given bactrim and advised podiatry f/u sent yesterday by forest pathology associate professor to ED c/o of severe pain at the ball of his left foot at the incision area [facility] no history of DM or liver disease awaiting MRI results and podiatry opinion d/w hospitalist erythema and streaking of the foot improved from this am, now able to move his big toe as well continue same antibiotics- shirao/anibal Problem List - Problems (1) Cellulitis of foot, left Code(s): L03.116 - CELLULITIS OF LEFT LOWER LIMB
[2020-03-03] MEDS: ACETAMINOPHEN 325 MG TABLET (FP) PO PRN (18:24)
--- NOTE | 2020-03-03 19:40 | PN ---
Physical Exam: SUBJECTIVE: Patient seen and examined in ED. Patient in no acute distress, laying comfortably. Complaining though of pain on bottom of left foot where he has wound. It's tender when he moves his foot. OBJECTIVE: Vital Signs Vital Signs - 8 hr 03/03/20 03/03/20 15:00 18:00 Temperature 98.9 F 98.2 F Pulse Rate 76 85 Respiratory 18 18 Rate Blood Pressure 137/81 142/87 GENERAL: The patient is awake, alert, and fully oriented, in no acute distress. HEAD: Normal with no signs of trauma. LUNGS: Breath sounds equal, clear to auscultation bilaterally, no wheezes, no crackles HEART: Regular rate and rhythm, S1, S2 without murmur, rub or gallop. ABDOMEN: Soft, nontender, nondistended, normoactive bowel sounds, no guarding, no rebound, no hepatosplenomegaly, no masses. EXTREMITIES: 2+ pulses, warm, well-perfused, no edema. Decreased sensation on doral aspect of L foot. L foot is very warm compared to right. Obvious streaking seen up the L foot towards ankle. Wound on planter aspect of L foot with small eschar, no palpable fluid, no purulent discharge, very erythematous. PSYCH: Normal mood, normal affect. Laboratory Results - last 24 hr 03/03/20 03/03/20 03/03/20 00:01 00:01 07:15 WBC RBC Hgb Hct MCV MCH MCHC RDW Plt Count MPV Absolute Neuts (auto) Neutrophils % Lymphocytes % Monocytes % Eosinophils % Basophils % Nucleated RBC % ESR Hemoglobin A1c % Phosphorus 3.8 Magnesium 2.2 C-Reactive Protein 2.4 H Urine Color Yellow Urine Appearance Clear Urine pH 6.5 Ur Specific [place] 1.036 H Urine Protein Negative Urine Glucose (UA) Negative Urine Ketones Negative Urine Blood Negative Urine Nitrite Negative Urine Bilirubin Negative Urine Urobilinogen 1.0 Ur Leukocyte Esterase Negative Ur Random Creatinine 98.0 U Random Total Protein 11.3 Protein/Creatinin Ratio 0.1 03/03/20 03/03/20 07:15 07:15 WBC 5.8 RBC 4.52 Hgb 12.7 Hct 39.3 MCV 86.8 MCH 28.0 MCHC 32.2 RDW 13.5 Plt Count 157 D MPV 8.1 D Absolute Neuts (auto) 4.1 Neutrophils % 70.0 Lymphocytes % 18.5 Monocytes % 10.0 Eosinophils % 1.4 Basophils % 0.1 Nucleated RBC % 0 ESR 18 Hemoglobin A1c % 4.8 Phosphorus Magnesium C-Reactive Protein Urine Color Urine Appearance Urine pH Ur Specific [place] Urine Protein Urine Glucose (UA) Urine Ketones Urine Blood Urine Nitrite Urine Bilirubin Urine Urobilinogen Ur Leukocyte Esterase Ur Random Creatinine U Random Total Protein Protein/Creatinin Ratio Active Medications Generic Name Dose Route Start Last Admin Trade Name Freq PRN Reason Stop Dose Admin Acetaminophen 650 mg 03/02/20 21:22 03/03/20 18:24 Tylenol - PO 650 mg Q4H PRN Administration PAIN LEVEL 6-10 Alprazolam 1 mg 03/03/20 17:43 Xanax PO Q24H PRN ANXIETY Enoxaparin Sodium 40 mg 03/03/20 10:00 03/03/20 09:48 Lovenox - SQ 40 mg DAILY ROSHAN Administration Piperacillin Sod/Tazobactam 100 mls @ 200 mls/hr 03/03/20 18:00 03/03/20 17:35 Sod 4.5 gm/ Dextrose IVPB 200 mls/hr Q8H-IV ROSHAN Administration Protocol Vancomycin HCl 1,000 mg in 250 mls @ 500 mls/hr 03/04/20 01:00 Vancomycin (Pre-Docked) IVPB Q12H ROSHAN Oxycodone HCl 5 mg 03/02/20 21:22 03/03/20 08:18 Roxicodone - PO 5 mg Q6H PRN Administration PAIN LEVEL 6-10 Trazodone HCl 300 mg 03/03/20 22:00 Desyrel - PO ROSHAN ASSESSMENT/PLAN: 54 Y M with a PMH of Multiple ruptured/herniated disks, anxiety and s/p gastric bypass, presents with 3 days of worsening plantar pain, associated with edema and erythema. LE CT revealed mild soft tissue swelling and no evidence of abscess. Patient is admitted for management of cellulitis of L. foot L. Foot Cellulitis / to a penetrating wound - Open wound between 2nd and 3rd digit of left foot - Worried about infection penetrating tendons due to patient's extreme pain when moving toes - MRI performed 03/03 pending report - Left foot XR revealed no foreign bodies or air collection - LE CT revealed soft tissue swelling without abscess or FB - Blood cultures are pending - Consulted wound care Dr. Pressley - Consulted podiatry Dr. Gordon - Continue Vanc + Zosyn HTN? elevated BPs - may be due to pain reassess need to antihypertensives tomorrow Insomnia Trazadone HS DVT PPX: Levenox 40mg FEN: - Not on any standing fluids - Monitor electrolytes - Regular Diet Dispo: Admit to Med-Surg pending Wound care Pending Podiatry recs Visit type - Emergency Visit Emergency Visit: Yes ED Registration Date: 03/02/20 Care time: The patient presented to the Emergency Department on the above date and was hospitalized for further evaluation of their emergent condition. - New Patient This patient is new to me today: No - Critical Care Critical Care patient: No - Discharge Referral Referred to [facility] Med P.C.: No ATTENDING PHYSICIAN STATEMENT I saw and evaluated the patient. I reviewed the resident's note and discussed the case with the resident. I agree with the resident's findings and plan as documented. SUBJECTIVE: OBJECTIVE: ASSESSMENT AND PLAN:
--- NOTE | 2020-03-03 19:55 | CONS ---
DATE OF CONSULTATION: DATE OF DICTATION: 03/03/2020 INFECTIOUS DISEASE CONSULTATION HISTORY OF PRESENT ILLNESS: This is a 54-year-old man who presents to the ER with pain in his left foot. He went to the [facility] in [place] on Sunday, which is quite and[place], and he felt like he stepped on something sharp. He noted increasing pain of the foot. He then tried to use a knife and dig out what he thought was a foreign object in his foot; he was unsuccessful. He thinks maybe he got a little sand out. He washed it out with alcohol, as he did not have any peroxide. Subsequently had increased pain and swelling. He went to [facility] on Sunday. He was given Bactrim. He had a Tdap vaccine. He was referred to podiatry. He saw a software development analyst at [facility] on Sunday who referred him to the ER. He has not had any fevers or chills. He noted he had some erythema on the dorsal surface of his foot that appears improved from the morning. He continues to have pain localized to his big toe. He has no history of diabetes. He has no history of any liver cirrhosis. PAST MEDICAL HISTORY: Notable for anxiety. He is formerly obesity. PAST SURGICAL HISTORY: He had a lap band followed by gastric sleeve and followed by weight loss and resolution of his obesity. He has had multiple disk ruptures and herniated disks. He has had a cervical fusion. He has had bilateral knee replacements. SOCIAL HISTORY: Former smoker, quit 3 years ago, drinks social alcohol, no drugs. He lives with his . 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 ALLERGIES: No known drug allergies. MEDICATION: Include: 1. Xanax. 2. Viagra. 3. The Bactrim that was just started. 4. Trazodone. REVIEW OF SYSTEMS: He has had no fevers or chills. He has no cough, nausea, vomiting, diarrhea, or dysuria. PHYSICAL EXAMINATION: General: He is awake and alert. Vital Signs: Temperature is 98. He has been afebrile since admission. Pulse of 76. Blood pressure 137/81, respiratory rate 18, he is saturating 99%. HEENT: Normocephalic. Eyes are anicteric. Neck: Supple. Lungs: Clear to auscultation. Heart: Regular rate and rhythm. Abdomen: Soft, nontender. Extremities: He has bilateral well healed knee replacement scars. On the bottom of his left foot, he has the area of incision. There is some dried blood there. The foot is mildly swollen when compared to his other foot. He has no purulence from that site. He has minimal erythema which is improved. The open wound is about 1 x 0.5 cm. He has no crepitus of his foot. His pain is localized to the ball of the big toe only. He is able to move his big toe, but he has exquisite tenderness at the plantar surface right below the 1st toe. Dorsalis pulses are intact. LABORATORY: His white count is 5.8, sedimentation rate is 18, CRP is 2.4, BUN and creatinine are 13 and 1. Urinalysis is negative. COVID PCR is pending. Blood cultures are pending. He had a CAT scan of the foot that showed mild soft tissue swelling, there was no foreign body. He just has returned from an MRI that is pending. IMPRESSION: In summary, this is a 54-year-old man with cellulitis of the right foot. Rule out abscess. No fevers. Improving on vancomycin and Zosyn, which I would continue for now. Awaiting MRI results and podiatry opinion. Case was discussed at length with the hospitalist. He received his Tdap at the urgent center. MARIANNE VACA M.D. [id number]
[2020-03-03] MEDS ORDERED: traZODone HCL 50 MG TABLET (FP) ONE (20:26)
[2020-03-03] MEDS: traZODone HCL 100 MG TABLET (FP) PO SCH (21:19)
[2020-03-04] MEDS: VANCOMYCIN 1 GRAM (PRE-DOCKED) 1,000 MG/250 ML BAG IVPB SCH ×2 (00:20→15:07)
[2020-03-04] MEDS: PIPERACILLIN/TAZOB 4.5 GM 4.5 GM in DEXTROSE 5%-WATER 100 ML IVPB SCH ×3 (02:49→18:49)
[2020-03-04 08:04] LABS: HEMOGLOBIN 13.2 GM/dL (11.7-16.9); MCH 27.9 pg (25.7-33.7); MCHC 32.2 g/dl (32.0-35.9); MEAN CELL VOLUME 86.7 fl (80-96); MEAN PLT VOLUME 8.3 fl (7.5-11.1); PLATELET COUNT 180 K/MM3 (134-434); RBC 4.73 M/mm3 (4.00-5.60); RDW 13.3 % (11.9-15.9); WHITE BLOOD COUNT 4.9 K/mm3 (4.0-10.0)
[2020-03-04 08:22] LABS: BLOOD UREA NITROGEN 10.8 mg/dL (7-18); CREATININE 1.1 mg/dL (0.55-1.3); MAGNESIUM 2.2 mg/dL (1.8-2.4); PHOSPHOROUS 3.3 mg/dL (2.5-4.9)
[2020-03-04] MEDS: ALPRAZolam 1 MG TABLET PO PRN (10:04)
[2020-03-04] MEDS: ENOXAPARIN NA (PORCINE) 40 MG/0.4 ML DISP.SYRIN SQ SCH (10:04)
--- NOTE | 2020-03-04 10:31 | CONSULT ---
Consult - text type - Consultation Consultation Note: PODIATRY CONSULT Called to nils 54 yo male ; states he was walking along the beach this past Sunday and believes he stepped on a sharp object and thinks something was in his foot. States he took a clean knife and cut it open where "water" drained out. Flushed with alcohol. States today he is feeling much better and pain is now minimal. Able to move his foot; afebrile. Denies any f/c/n/v/sob. Vasc: dp/pt palpable, temp gradient wnl along the plantar left foot there is a small stab incision area with some surrounding dried blood; now only minimal erythema, minimal edema, no POP noted to the foot or on rom of the 1st MPJ, only mild pop noted at the incision site, no purulence, no streaking noted neuro: intact xray: negative for gas or fractures ct: negative for any abscess MRI: pending read WBC wnl A: 54 y/o male with likely removed foreign body and now resolving cellulitis P: Evaluated and reviewed will await MRI read at this time though does not need any surgical intervention would recc 24-48 more hours of Iv Abx If MRI shows any osteo would need placement for outpatient IV abx; bone biopsy will not show anything since patient has been on antibiotics now Will f/u
[2020-03-04 15:58] VITALS: BMI 27.1
--- NOTE | 2020-03-04 16:12 | PN ---
Progress Note (short form) - Note Progress Note: foot much improved Vital Signs Period Temp Pulse Resp BP Sys/Carlson Pulse Ox Last 24 Hr 97.5 F-98.4 F 61-85 18-20 107-142/69-87 99-99 cor-rrr lungs clear abd soft,nt ext still some swelling, FROM all toes, NO PAIN on palpation'less erythema CBC, BMP 03/04/20 06:55 03/04/20 06:55 Microbiology 03/02/20 11:50 Blood - Peripheral Venous Blood Culture - Preliminary NO GROWTH OBTAINED AFTER 48 HOURS, INCUBATION TO CONTINUE FOR 3 DAYS. 03/02/20 11:10 Blood - Peripheral Venous Blood Culture - Preliminary NO GROWTH OBTAINED AFTER 48 HOURS, INCUBATION TO CONTINUE FOR 3 DAYS. cellulitis, r/o abscess/osteo awaiting MRI results continue vanco/zosyn for now
--- NOTE | 2020-03-04 16:35 | PN ---
Teaching Attending Note Name of Resident: Glenny Fletcher ATTENDING PHYSICIAN STATEMENT I saw and evaluated the patient. I reviewed the resident's note and discussed the case with the resident. I agree with the resident's findings and plan as documented. SUBJECTIVE: No fever or chills. feels much better. pain and range of motion in foot and big toe has improved OBJECTIVE: NAD, awake, alert, cooperative MMM, CV: RRR, no MRG Lungs: CTAB abd: soft, NT, Nd , NL BS ext :R foot with resolution of erythema and streaking on L dorsal foot. still warm foot and lower leg, but improved. wound on plantar aspect is still with an escar and no drainage. hyperpigmented skin around wound. no tenderness. no pain with toes movement . ASSESSMENT AND PLAN: 54 y/o man with h/o Prediabetes, herniated discs ,Bilateral knee replacement, Osteoarthritis, Anxiety and Gastric bypass surgery , and gout , he presented with pain and erythema on R foot after a punctuate injury 1- L foot cellulitis: much improved today. - MRI read pending. team to d/w radiologist - cont vanco and zosyn - vanco trough this afternoon - has h/o gout . urinc acid nL 2- H/o Anxiety, xanax daily 3- Insomnia: trazodone.
[2020-03-04] MEDS: ACETAMINOPHEN 325 MG TABLET (FP) PO PRN (20:35)
[2020-03-04] MEDS: oxyCODONE HCL 5 MG TABLET PO PRN (20:35)
--- NOTE | 2020-03-04 21:41 | PN ---
Physical Exam: SUBJECTIVE: Patient seen and examined bedside, in no acute distress, reports feeling much better. OBJECTIVE: Vital Signs Period Temp Pulse Resp BP Sys/Carlson Pulse Ox Last 24 Hr 97.5 F-98.4 F 61-69 16-20 107-131/69-81 99 GENERAL: The patient is awake, alert, and fully oriented, in no acute distress. HEAD: Normal with no signs of trauma. LUNGS: Breath sounds equal, clear to auscultation bilaterally, no wheezes, no crackles HEART: Regular rate and rhythm, S1, S2 without murmur, rub or gallop. ABDOMEN: Soft, nontender, nondistended, normoactive bowel sounds, no guarding, no rebound, no hepatosplenomegaly, no masses. EXTREMITIES: L planter foot wound with small eschar in center. No surrounding streaking, less tender to palpation compared to yesterday PSYCH: Normal mood, normal affect. Laboratory Results - last 24 hr 03/02/20 03/04/20 03/04/20 11:50 06:55 06:55 WBC 4.9 RBC 4.73 Hgb 13.2 Hct 41.0 MCV 86.7 MCH 27.9 MCHC 32.2 RDW 13.3 Plt Count 180 MPV 8.3 Sodium 137 Potassium 4.0 Chloride 101 Carbon Dioxide 30 Anion Gap 6 L BUN 10.8 Creatinine 1.1 Est GFR (CKD-EPI)AfAm 88.98 Est GFR (CKD-EPI)NonAf 76.77 Random Glucose 73 L Uric Acid Calcium 9.0 Phosphorus 3.3 Magnesium 2.2 LD Total 103 Vancomycin Pre-Dose COVID-19 ([facility]) Not detected 03/04/20 03/04/20 03/04/20 12:24 14:40 15:05 WBC RBC Hgb Hct MCV MCH MCHC RDW Plt Count MPV Sodium Potassium Chloride Carbon Dioxide Anion Gap BUN Creatinine Est GFR (CKD-EPI)AfAm Est GFR (CKD-EPI)NonAf Random Glucose Uric Acid 4.3 Calcium Phosphorus Magnesium LD Total Vancomycin Pre-Dose 11.0 H 9.8 COVID-19 ([facility]) Active Medications Generic Name Dose Route Start Last Admin Trade Name Freq PRN Reason Stop Dose Admin Acetaminophen 650 mg 03/02/20 21:22 03/04/20 20:35 Tylenol - PO 650 mg Q4H PRN Administration PAIN LEVEL 6-10 Alprazolam 1 mg 03/03/20 17:43 03/04/20 10:04 Xanax PO 1 mg Q24H PRN Administration ANXIETY Enoxaparin Sodium 40 mg 03/03/20 10:00 03/04/20 10:04 Lovenox - SQ 40 mg DAILY ROSHAN Administration Piperacillin Sod/Tazobactam 100 mls @ 200 mls/hr 03/03/20 18:00 03/04/20 18:49 Sod 4.5 gm/ Dextrose IVPB 200 mls/hr Q8H-IV ROSHAN Administration Protocol Vancomycin HCl 1,000 mg in 250 mls @ 500 mls/hr 03/04/20 01:00 03/04/20 15:07 Vancomycin (Pre-Docked) IVPB 500 mls/hr Q12H ROSHAN Administration Oxycodone HCl 5 mg 03/02/20 21:22 03/04/20 20:35 Roxicodone - PO 5 mg Q6H PRN Administration PAIN LEVEL 6-10 Trazodone HCl 300 mg 03/03/20 22:00 03/03/20 21:19 Desyrel - PO 300 mg HS ROSHAN Administration ASSESSMENT/PLAN: 54 Y M with a PMH of Multiple ruptured/herniated disks, anxiety and s/p gastric bypass, presents with 3 days of worsening plantar pain, associated with edema and erythema. LE CT revealed mild soft tissue swelling and no evidence of abscess. Patient is admitted for management of cellulitis of L. foot L. Foot Cellulitis 2/2 to a penetrating wound - Open wound between 2nd and 3rd digit of left foot - MRI - increased signal involving middle phalanx of 2nd toe/could be posttraumatic in nature. And no collectible fluid noted - Left foot XR revealed no foreign bodies or air collection - LE CT revealed soft tissue swelling without abscess or FB - Blood cx show no growth - Consulted ID (Heron) - Consulted podiatry (Arun)- no intervention at this time - Continue Vanc + Zosyn day 2 - Last Vanc trough 11 Insomnia Trazadone HS DVT PPX: Levenox 40mg FEN: - Not on any standing fluids - Monitor electrolytes - Regular Diet Dispo: Admit to Med-Surg Visit type - Emergency Visit Emergency Visit: Yes ED Registration Date: 03/02/20 Care time: The patient presented to the Emergency Department on the above date and was hospitalized for further evaluation of their emergent condition. - New Patient This patient is new to me today: No - Critical Care Critical Care patient: No - Discharge Referral Referred to [facility] Med P.C.: Yes ATTENDING PHYSICIAN STATEMENT I saw and evaluated the patient. I reviewed the resident's note and discussed the case with the resident. I agree with the resident's findings and plan as documented. SUBJECTIVE: OBJECTIVE: ASSESSMENT AND PLAN:
[2020-03-04] MEDS: traZODone HCL 100 MG TABLET (FP) PO SCH (22:24)
[2020-03-05] MEDS: VANCOMYCIN 1 GRAM (PRE-DOCKED) 1,000 MG/250 ML BAG IVPB SCH ×2 (00:05→14:03)
[2020-03-05] MEDS: PIPERACILLIN/TAZOB 4.5 GM 4.5 GM in DEXTROSE 5%-WATER 100 ML IVPB SCH ×2 (03:04→09:49)
--- NOTE | 2020-03-05 07:18 | PN ---
Progress Note (short form) - Note Progress Note: Called to nils 54 yo male ; states [place] the [place] and believes he stepped on a sharp object and thinks something was in his foot. States he took a clean knife and cut it open where "water" drained out. Today feeling better and states he thinks there has been continued improvement since admission. Denies any overnight events. States minimal pain. Vasc: dp/pt palpable, temp gradient wnl along the plantar left foot there is a small stab incision area with some surrounding dried blood; now minimal erythema, minimal edema, no POP noted to the foot, minimal on rom of the 1st MPJ, only mild pop noted at the incision site, no purulence, no streaking noted neuro: intact xray: negative for gas or fractures ct: negative for any abscess MRI: no acute abscess WBC wnl A: 54 y/o male with likely removed foreign body and now resolving cellulitis P: Evaluated and reviewed does not warrant surgical intervention xray;ct;mri negative findings Antibiotics per ID. Will need f/u as outpatient.
[2020-03-05 07:52] LABS: HEMATOCRIT 42.3 % (35.4-49); HEMOGLOBIN 14.1 GM/dL (11.7-16.9); MCH 28.8 pg (25.7-33.7); MCHC 33.3 g/dl (32.0-35.9); MEAN CELL VOLUME 86.4 fl (80-96); MEAN PLT VOLUME 8.1 fl (7.5-11.1); PLATELET COUNT 179 K/MM3 (134-434); RBC 4.89 M/mm3 (4.00-5.60); RDW 13.1 % (11.9-15.9); WHITE BLOOD COUNT 5.9 K/mm3 (4.0-10.0)
[2020-03-05 08:18] LABS: BLOOD UREA NITROGEN 11.6 mg/dL (7-18); CALCIUM 9.1 mg/dL (8.5-10.1); MAGNESIUM 2.1 mg/dL (1.8-2.4); PHOSPHOROUS 3.2 mg/dL (2.5-4.9); POTASSIUM 3.8 mmol/L (3.5-5.1)
[2020-03-05] MEDS: ENOXAPARIN NA (PORCINE) 40 MG/0.4 ML DISP.SYRIN SQ SCH (09:49)
[2020-03-05] MEDS: ALPRAZolam 1 MG TABLET PO PRN (09:49)
--- NOTE | 2020-03-05 11:57 | PN ---
Progress Note (short form) - Note Progress Note: foot much improved from yesterday MRI reviewed with radiologist- no osteo, +effusion- not c/w septic arthritis- ?secondary to trauma, ?gout Vital Signs Period Temp Pulse Resp BP Sys/Carlson Pulse Ox Last 24 Hr 97.4 F-98.4 F 63-80 16-20 96-131/65-81 100 cor-rrr llungs clear abd soft,nt ext foot much improved, minimal erythema, much less edema no pain, no drainage, superficial cut on olantar surface has scab no drainage, no erythema no pain at all CBC, BMP 03/05/20 07:29 03/05/20 07:29 esr 18 Microbiology 03/02/20 11:50 Blood - Peripheral Venous Blood Culture - Preliminary NO GROWTH OBTAINED AFTER 48 HOURS, INCUBATION TO CONTINUE FOR 3 DAYS. 03/02/20 11:10 Blood - Peripheral Venous Blood Culture - Preliminary NO GROWTH OBTAINED AFTER 48 HOURS, INCUBATION TO CONTINUE FOR 3 DAYS. 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
[2020-03-05 14:16] VITALS: BP 111/71; PULSE 88; TEMP 98.2
--- NOTE | 2020-03-05 16:48 | PN ---
Teaching Attending Note Name of Resident: Glenny Fletcher ATTENDING PHYSICIAN STATEMENT I saw and evaluated the patient. I reviewed the resident's note and discussed the case with the resident. I agree with the resident's findings and plan as documented. SUBJECTIVE: no fever or chills. no pain in foot OBJECTIVE: OBJECTIVE: NAD MMM, CV: RRR, no MRG Lungs: CTAB ext :R foot with no erythema . plantar wound is stable with no discharge or erythema . big toe and other toes nmovement is normal . mild tenderness over 1st MT head . DP 2+ r ASSESSMENT AND PLAN: 54 y/o man with h/o Prediabetes, herniated discs ,Bilateral knee replacement, Osteoarthritis, Anxiety and Gastric bypass surgery , and gout , he presented with pain and erythema on R foot after a punctuate injury 1- L foot cellulitis: much improved today. MRI was d/w Dr. Dickerson and Heron today. no suspicion fro septic joint despite effusion. no suspicion for OM in second toe. dc on po abx, bactrim adn augmentin f/u with dr. Dickerson in wound care clinis 2- H/o Anxiety, xanax daily 3- Insomnia: trazodone.
--- NOTE | 2020-03-05 20:36 | DS ---
Physical Exam: SUBJECTIVE: Patient seen and examined bedside. In no acute distress. Reports he is doing much better. No events overnight. OBJECTIVE: Vital Signs Period Temp Pulse Resp BP Sys/Carlson Pulse Ox Last 24 Hr 97.4 F-98.3 F 68-88 19-20 96-120/65-80 100-100 PHYSICAL EXAM GENERAL: The patient is awake, alert, and fully oriented, in no acute distress. HEAD: Normal with no signs of trauma. LUNGS: Breath sounds equal, clear to auscultation bilaterally, no wheezes, no crackles HEART: Regular rate and rhythm, S1, S2 without murmur, rub or gallop. ABDOMEN: Soft, nontender, nondistended, normoactive bowel sounds, no guarding, no rebound, no hepatosplenomegaly, no masses. EXTREMITIES: L planter foot wound with small eschar in center. Can apply firm pressure with no tenderness. Surrounding erythema as receded. PSYCH: Normal mood, normal affect. LABS Laboratory Results - last 24 hr 03/05/20 03/05/20 07:29 07:29 WBC 5.9 RBC 4.89 Hgb 14.1 Hct 42.3 MCV 86.4 MCH 28.8 MCHC 33.3 RDW 13.1 Plt Count 179 MPV 8.1 Sodium 137 Potassium 3.8 Chloride 103 Carbon Dioxide 27 Anion Gap 7 L BUN 11.6 Creatinine 1.0 Est GFR (CKD-EPI)AfAm 99.85 Est GFR (CKD-EPI)NonAf 86.15 Random Glucose 78 Calcium 9.1 Phosphorus 3.2 Magnesium 2.1 HOSPITAL COURSE: Patient presented to the [facility] with 3 days of worsening pain on the plantar aspect of his foot, associated with edema and erythema. Lower extremity CT revealed mild soft tissue swelling and no evidence of abscess. Patient was admitted for management of cellulites of his left foot Because of his severe pain with moving his big toe an MRI was ordered to rule out that the infection had spread to any tendons or surrounding soft tissue. MRI show increased signal involving middle phalanx of 2nd toe/could be posttraumatic in nature with no collectible fluid noted. Patient was given 4 days of IV antibiotics and discharged on a 10 day regimen of augmentin and bactrim. Date of Admission:03/02/20 Date of Discharge: 03/05/20 Minutes to complete discharge: 30 Discharge Summary Problems reviewed: Yes Reason For Visit: INFECTION ON LT FOOT Condition: Improved - Instructions Diet, Activity, Other Instructions: VISIT: You were treated fo cellulitis of your foot . . You are being discharged on oral antibiotics for 10 days. MEDICATION Augmentin 875-125 tap twice a day for 10 days Bactrim DS 1 tab twice day for 10 days FOLLOW UP Please follow up with Dr. Dickerson in wound care center on 5th floor On Sunday. Please also follow up with your primary care physician within 2 weeks of discharge If your wound becomes worse, increases in pain, has a foul smell, or you start feel feverish, please come to the ED. Referrals: Carloz Dickerson MD [Staff Physician] - Ramy Tijerina MD [Primary Care Provider] - Disposition: HOME - Home Medications Comprehensive Discharge Medication List: Ambulatory Orders Alprazolam [Xanax] 1 mg PO DAILY 03/02/20 Sildenafil Citrate [Viagra] 100 mg PO ASDIR 03/02/20 Trazodone HCl 300 mg PO HS 03/02/20 Cyclobenzaprine HCl 10 mg PO BID 03/03/20 Amoxicillin/Potassium Clav [Augmentin 875-125 Tablet] 1 each PO BID 10 Days #20 tablet MDD 2 03/05/20 Sulfamethoxazole/Trimethoprim [Bactrim Ds -] 1 tab PO BID 10 Days #20 tablet MDD 2 03/05/20 This patient is new to me today: No Emergency Visit: Yes ED Registration Date: 03/02/20 Care time: The patient presented to the Emergency Department on the above date and was hospitalized for further evaluation of their emergent condition. Critical Care patient: No - Discharge Referral Referred to [facility] Med P.C.: Yes Physician Referral: Yuan Pressley DO ([facility]) ATTENDING PHYSICIAN STATEMENT I saw and evaluated the patient. I reviewed the resident's note and discussed the case with the resident. I agree with the resident's findings and plan as documented. SUBJECTIVE: OBJECTIVE: ASSESSMENT AND PLAN:
== END 2020-03-05 17:19 | disposition home or self-care (01) | DRG 603 ==
LOC: JER 10:13 → JERBED 18:59 → J6WEST-2 03-03 10:43
PROVIDERS: ADMIT Internal Medicine; ATTEND Internal Medicine
DX: L03.116 Cellulitis of left lower limb (principal); F41.9 Anxiety disorder, unspecified; G47.00 Insomnia, unspecified; S91.302A Unspecified open wound, left foot, initial encounter; W26.8XXA Contact with other sharp object(s), not elsewhere classified, initial encounter; Y93.89 Activity, other specified; Y92.89 Other specified places as the place of occurrence of the external cause; Y99.9 Unspecified external cause status
CPT/HCPCS: 36415; 73630-TC-LT; 73702-TC-RT; 73719-LT; 80048; 80053; 81003; 82565; 83036; 83615; 83735; 84100; 84156; 84550; 85025; 85027; 85651; 86140; 87040; 93005; 93010; 99285-25; G0480; U0003